=== PATIENT | female | born 2000 | race Caucasian/White ===

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

== ENCOUNTER 2021-03-31 13:06 | Emergency (ER) | payer OTHER ==
[~2021-03-31] VITALS: Ht 152.4 cm; Wt 46.3 kg
== END 2021-03-31 17:42 | disposition home or self-care (01) ==
LOC: ER 13:06
DX: R10.31 Right lower quadrant pain (principal)